=== PATIENT | male | born 2000 | race Two or more races ===

== ENCOUNTER → 2021-01-29 | Outpatient (CLI) | payer OTHER ==
[~2021-01-29] MED LIST: SYNTHROID125 MCG PO
== END | disposition home or self-care (01) ==
LOC: RAD 11:35
PROVIDERS: ATTEND Radiology Diagnostic Radiology
DX: S62.512A Displaced fracture of proximal phalanx of left thumb, initial encounter for closed fracture (principal)

== ENCOUNTER 2021-02-03 11:23 | Day surgery (SDC) | payer OTHER | END 2021-02-03 18:30 | disposition home or self-care (01) | LOC: CIR.AMB 11:23 | PROVIDERS: ATTEND Orthopaedic Surgery Hand Surgery | DX: S62.512A Displaced fracture of proximal phalanx of left thumb, initial encounter for closed fracture (principal); Z20.822 Contact with and (suspected) exposure to COVID-19 ==